=== PATIENT | female | born 1975 | race Caucasian/White ===

== ENCOUNTER 2024-08-06 12:47 | Inpatient (IN) | payer MEDICARE, OTHER ==
[~2024-08-06] VITALS: Ht 170.2 cm; Wt 87.1 kg
[2024-08-06] MEDS ORDERED: KETOROLAC TROMETHAMINE 15 MG INJ ONE (13:34)
[2024-08-06] MEDS ORDERED: ONDANSETRON 4 MG/2 ML VIAL ONE ×2 (13:34→14:14)
[2024-08-06] MEDS: IV NORMAL SALINE 1000 ML BAG IV ONE ×2 (13:41→14:16)
[2024-08-06] MEDS: ONDANSETRON 4 MG/2 ML VIAL IV ONE ×2 (13:41→14:15)
[2024-08-06] MEDS: KETOROLAC TROMETHAMINE 15 MG INJ IVP ONE (13:42)
[2024-08-06 13:56] LABS: BASOPHILS # (AUTO) 0.1 K/UL (0.0-0.2); BASOPHILS % (AUTO) 0.5 % (0.0-2.0); HEMATOCRIT 34.9 % (31.2-41.9); HEMOGLOBIN 11.7 g/dL (10.9-14.3); LYMPHOCYTES % (AUTO) 8.1 % (20.5-51.5); MEAN CORPUSCULAR HGB CONC 34 g/dL (32.3-35.6); MEAN CORPUSCULAR VOLUME 92.2 fL (75.5-95.3); MONOCYTES # (AUTO) 0.3 K/uL (0.1-1.30); MONOCYTES % (AUTO) 2.3 % (0.0-11.0); NEUTROPHILS # (AUTO) 10.7 K/uL (1.8-8.9); NEUTROPHILS % (AUTO) 89.1 % (38.5-71.5); PLATELET COUNT (AUTO) 327 K/uL (179-408); RED BLOOD CELL COUNT(AUTO) 3.79 MIL/uL (3.63-4.92); RED CELL DISTRIBUTION WIDTH 13.3 % (12.3-17.7)
[2024-08-06 13:58] LABS: DIFFERENTIAL COMMENT 1
[2024-08-06 14:03] LABS: CALCIUM 9.7 mg/dL (8.5-10.1); CREATININE 0.6 mg/dL (0.6-1.3); POTASSIUM 3.6 mmol/L (3.5-5.1)
[2024-08-06 14:09] LABS: ALBUMIN 4.2 g/dL (3.4-5.0); BILIRUBIN,TOTAL 0.7 mg/dL (0.2-1.0); TOTAL PROTEIN, SERUM 7.9 g/dL (6.4-8.2)
[2024-08-06] MEDS ORDERED: HYDROMORPHONE 1 MG/1 ML DISP.SYRIN ONE ×5 (14:13→22:22)
[2024-08-06] MEDS: HYDROMORPHONE 1 MG/1 ML DISP.SYRIN IV ONE ×4 (14:16→22:25)
[2024-08-06 14:58] LABS: LIPASE 25 U/L (16-77)
[2024-08-06 14:59] LABS: PREGNANCY TEST SERUM QUAN 1 miul/L (0-6)
[2024-08-06] MEDS ORDERED: METOCLOPRAMIDE HCL 10 MG/2 ML VIAL ONE ×3 (15:11→18:37)
[2024-08-06] MEDS: METOCLOPRAMIDE HCL 10 MG/2 ML VIAL IV ONE ×2 (15:14→17:32)
[2024-08-06 16:43] LABS: *BILIRUBIN,URIN NEGATIVE (NEGATIVE); *CLARITY,URINE CLEAR (CLEAR); *COLOR,URINE YELLOW (YELLOW); *KETONES,URINE 2+ (NEGATIVE); *PROTEIN,URINE NEGATIVE (NEGATIVE); LEUKOCYTE ESTERASE ,URINE NEGATIVE (NEGATIVE); NITRITE, URINE NEGATIVE (NEGATIVE); PH,URINE 7.5 (5.0-8.0); UGLUCOSE TRACE (NEGATIVE)
[2024-08-06 16:54] LABS: *BLOOD, URINE TRACE (NEGATIVE)
[2024-08-06 17:02] LABS: BACTERIA,URINE NONE SEEN /HPF (NONE SEEN); RBC,URINE 0-3 /HPF (0-3); WBC,URINE 0-3 /HPF (0-3)
[2024-08-06 17:03] LABS: SQUAMOUS EPITHELIAL CELL,UR FEW /HPF (NONE SEEN)
[2024-08-06] MEDS ORDERED: DIATR MEGLU/DIATRIZOATE SODIUM 30 ML BOTTLE ONE (17:49)
[2024-08-06] MEDS ORDERED: IOHEXOL 300MG/ML 100 ML INFUS..BTL ONE (17:51)
[2024-08-06] MEDS: DIATR MEGLU/DIATRIZOATE SODIUM 120 ML BOTTLE PO ONE (17:55)
[2024-08-06] MEDS ORDERED: PROCHLORPERAZINE EDISYLATE 10 MG/2 ML VIAL ONE (19:00)
[2024-08-06] MEDS ORDERED: diphenhydrAMINE 50 MG/1 ML VIAL ONE (19:00)
[2024-08-06] MEDS: diphenhydrAMINE 50 MG/1 ML VIAL IV ONE (19:06)
[2024-08-06] MEDS: PROCHLORPERAZINE EDISYLATE 10 MG/2 ML VIAL IV ONE (19:06)
[2024-08-06 20:59] LABS: *URINE HCG, QUAL NEGATIVE (NEGATIVE)
[2024-08-06] MEDS ORDERED: PANTOPRAZOLE SODIUM 40 MG VIAL ONE (21:29)
[2024-08-06] MEDS ORDERED: KETOROLAC TROMETHAMINE 30 MG INJ ONE (21:29)
[2024-08-06] MEDS: KETOROLAC TROMETHAMINE 30 MG INJ IVP ONE (21:36)
[2024-08-06] MEDS: PANTOPRAZOLE SODIUM 40 MG VIAL IV ONE (21:36)
[2024-08-06 22:01] LABS: *AMPHETAMINE, URINE NEGATIVE (NEGATIVE); *BARBITURATE, URINE NEGATIVE (NEGATIVE); *BENZODIAZEPINE, URINE NEGATIVE (NEGATIVE); *CANNABINOID, URINE POSITIVE (NEGATIVE); *COCCAINE, URINE NEGATIVE (NEGATIVE); *OPIATE, URINE POSITIVE (NEGATIVE); *PHENCYCLIDINE SCREEN,URINE NEGATIVE (NEGATIVE); FENTANYL, URINE NEGATIVE (NEGATIVE)
[2024-08-07] MEDS ORDERED: ACETAMINOPHEN 325 MG TABLET PO PRN (01:00)
[2024-08-07] MEDS ORDERED: REMEDY ESSENTIAL ZINC PASTE 113 GM TP PRN (01:00)
[2024-08-07] MEDS ORDERED: PIPERACILLIN/TAZOBACTAM/D5W 50 ML IV ONE (01:07)
[2024-08-07] MEDS: HYDROMORPHONE 1 MG/1 ML DISP.SYRIN IV PRN (01:13)
[2024-08-07] MEDS: PIPERACILLIN SODIUM/TAZOBACTAM 3.375 G in IV DEXTROSE 5% 50 ML IV SCH (01:13)
[2024-08-07 02:01] VITALS: BP 122/72; TEMP 98.3; O2SAT 99
[2024-08-07] MEDS: IV LACTATED RINGERS SOLUTION 1,000 ML IV PRN (02:09)
[2024-08-07 06:29] VITALS: BP 128/59; TEMP 98.3; O2SAT 100
[2024-08-07] MEDS: PANTOPRAZOLE SODIUM 40 MG TABLET.DR PO SCH (06:37)
[2024-08-07 06:51] LABS: BASOPHILS % (AUTO) 0.4 % (0.0-2.0); EOSINOPHILS % (AUTO) 0.1 % (0.0-7.0); HEMATOCRIT 33.9 % (31.2-41.9); HEMOGLOBIN 11.7 g/dL (10.9-14.3); LYMPHOCYTES % (AUTO) 22.4 % (20.5-51.5); MEAN CORPUSCULAR HEMOGLOBIN 31.8 uug (24.7-32.8); MEAN CORPUSCULAR HGB CONC 35 g/dL (32.3-35.6); MEAN CORPUSCULAR VOLUME 92.3 fL (75.5-95.3); MONOCYTES # (AUTO) 0.9 K/uL (0.1-1.30); NEUTROPHILS # (AUTO) 9.3 K/uL (1.8-8.9); NEUTROPHILS % (AUTO) 70.1 % (38.5-71.5); PLATELET COUNT (AUTO) 316 K/uL (179-408); RED BLOOD CELL COUNT(AUTO) 3.67 MIL/uL (3.63-4.92); RED CELL DISTRIBUTION WIDTH 13.4 % (12.3-17.7); WHITE BLOOD COUNT (AUTO) 13.3 K/uL (3.8-11.8)
[2024-08-07 07:02] LABS: DIFFERENTIAL COMMENT 1
[2024-08-07 07:13] LABS: BILIRUBIN,TOTAL 0.9 mg/dL (0.2-1.0); CALCIUM 9.8 mg/dL (8.5-10.1); CREATININE 0.8 mg/dL (0.6-1.3); MAGNESIUM 1.8 mg/dL (1.8-2.4); POTASSIUM 3.6 mmol/L (3.5-5.1); TOTAL PROTEIN, SERUM 7.5 g/dL (6.4-8.2)
[2024-08-07 08:00] VITALS: TEMP 99
[2024-08-07] MEDS: PIPERACILLIN SODIUM/TAZOBACTAM 3.375 G in IV DEXTROSE 5% 100 ML IV SCH (10:33)
[2024-08-07 11:00] VITALS: TEMP 98
[2024-08-07] MEDS ORDERED: DICYCLOMINE HCL 10 MG CAPSULE PO ONE (12:00)
[2024-08-07] MEDS ORDERED: IV LACTATED RINGERS SOLUTION 1,000 ML BAG IV ONE (12:15)
[2024-08-07] MEDS ORDERED: ONDA4TAB5 PO (12:25)
[2024-08-07] MEDS: IV LACTATED RINGERS SOLUTION 1,000 ML IV ONE (12:49)
[2024-08-07] MEDS ORDERED: DICL100G31 TP (12:51)
[2024-08-07] MEDS: FAMOTIDINE. 20 MG/2 ML VIAL IV ONE (12:58)
[2024-08-07] MEDS ORDERED: TIZA4TAB5 PO (12:59)
[2024-08-07] MEDS ORDERED: OMEP40CA21 PO (12:59)
[2024-08-07] MEDS ORDERED: UBRO100T PO (13:01)
[2024-08-07] MEDS ORDERED: MAGN400T26 PO (13:02)
[2024-08-07] MEDS ORDERED: RIBO100T6 PO (13:05)
[2024-08-07] MEDS ORDERED: AMMO225L7 TP (13:07)
[2024-08-07] MEDS ORDERED: DULO60CA64 PO (13:08)
[2024-08-07] MEDS ORDERED: GABA600T12 PO (13:09)
[2024-08-07] MEDS ORDERED: BUSP5TAB3 PO (13:09)
[2024-08-07] MEDS ORDERED: QUET300T2 PO (13:10)
[2024-08-07] MEDS ORDERED: QUET25TA36 PO (13:11)
[2024-08-07] MEDS ORDERED: ERGO500040 PO (13:12)
[2024-08-07] MEDS ORDERED: HYDR-3895 PO (13:13)
[2024-08-07] MEDS ORDERED: FERR-56 PO (13:15)
[2024-08-07] MEDS ORDERED: MOUNJARO SQ (13:16)
[2024-08-07] MEDS ORDERED: HYDR28.462 TP (13:17)
[2024-08-07] MEDS ORDERED: HYDR-3972 PO (13:22)
[2024-08-07] MEDS ORDERED: METF-442 PO (13:23)
[2024-08-07] MEDS ORDERED: DONE10TA44 PO (13:24)
[2024-08-07] MEDS ORDERED: SIMV-46 PO (13:24)
[2024-08-07] MEDS ORDERED: FOLI1TAB94 PO (13:25)
[2024-08-07] MEDS ORDERED: ALEN70TA80 PO (13:26)
[2024-08-07] MEDS: ONDANSETRON 4 MG/2 ML VIAL IV PRN (14:19)
== END 2024-08-07 15:30 | disposition home or self-care (01) | DRG 392 ==
LOC: ER 12:52 → MEDSURG3 08-07 01:26
PROVIDERS: ADMIT Nurse Practitioner Family
PROC: 05HC33Z Insertion of Infusion Device into Left Basilic Vein, Percutaneous Approach (ICD-10-PCS; principal; 2024-08-07)
DX: A08.4 Viral intestinal infection, unspecified (principal); R11.2 Nausea with vomiting, unspecified; F12.90 Cannabis use, unspecified, uncomplicated; E11.9 Type 2 diabetes mellitus without complications; Z98.84 Bariatric surgery status; Z90.49 Acquired absence of other specified parts of digestive tract; E66.9 Obesity, unspecified; Z68.30 Body mass index [BMI] 30.0-30.9, adult
CPT/HCPCS: 36415; 71045; 83690; 83735; 84484; 84703; 85025; 85730; A4606; A4663; G0378; J0780; J1171; J1200; J1308; J1885; J2405; J2470; J2543; J2765; J7040; J7120; Q9963; Q9967

== ENCOUNTER 2025-03-20 07:11 | Emergency (ER) | payer MEDICARE, OTHER ==
[~2025-03-20] VITALS: Ht 167.6 cm; Wt 74.8 kg
[~2025-03-20 07:11] MED LIST: ALEN70TA80 PO; AMMO225L7 TP; BUSP5TAB3 PO; DICL100G61 TP; DONE10TA44 PO; DULO60CA64 PO; ERGO125010 PO; FERR-56 PO; FOLI1TAB94 PO; HYDR-3895 PO; HYDR-3972 PO; HYDR28.462 TP; MAGN400T26 PO; METF-442 PO; MOUNJARO SQ; OMEP40CA21 PO; ONDA4TAB5 PO; QUET25TA36 PO; QUET300T2 PO; RIBO100T6 PO; SIMV-46 PO; TIZA-205 PO; UBRO100T PO; [UNRECOGNIZED DRUG - CODE] PO
[2025-03-20] MEDS: IV NORMAL SALINE 1000 ML BAG IV ONE (07:33)
[2025-03-20] MEDS ORDERED: diphenhydrAMINE 50 MG/1 ML VIAL ONE (07:34)
[2025-03-20] MEDS ORDERED: HALOPERIDOL LACTATE 5 MG/1 ML VIAL ONE (07:34)
[2025-03-20] MEDS: HALOPERIDOL LACTATE 5 MG/1 ML VIAL IV ONE (07:38)
[2025-03-20] MEDS: diphenhydrAMINE 50 MG/1 ML VIAL IV ONE (07:38)
[2025-03-20 07:55] LABS: PLATELET COUNT (AUTO) 391 K/uL (179-408); RED BLOOD CELL COUNT(AUTO) 4.61 MIL/uL (3.63-4.92); RED CELL DISTRIBUTION WIDTH 13.9 % (12.3-17.7); WHITE BLOOD COUNT (AUTO) 11.4 K/uL (3.8-11.8)
[2025-03-20 08:12] LABS: ASPARTATE AMINOTRANSFERASE 16 U/L (15-37); CREATININE 0.8 mg/dL (0.6-1.3); SODIUM SERUM 137 mmol/L (136-145); TOTAL PROTEIN, SERUM 8.6 g/dL (6.4-8.2); UREA NITROGEN, BLOOD 13 mg/dL (7-18)
[2025-03-20 08:16] LABS: PREGNANCY TEST SERUM QUAN 2 miul/L (0-6)
[2025-03-20] MEDS ORDERED: IV NORMAL SALINE 250 ML IV ONE (08:30)
[2025-03-20] MEDS ORDERED: SWABABLE VALVE TRANSFER SET EA MC ONE (08:30)
[2025-03-20] MEDS ORDERED: IOHEXOL 300MG/ML 100 ML INFUS..BTL ONE (08:30)
[2025-03-20] MEDS ORDERED: METOCLOPRAMIDE HCL 10 MG/2 ML VIAL ONE (09:11)
[2025-03-20] MEDS: METOCLOPRAMIDE HCL 10 MG/2 ML VIAL IV ONE (09:16)
[2025-03-20] MEDS ORDERED: BUPRENORPHINE HCL 2 MG TAB.SUBL SL ONE (10:24)
[2025-03-20] MEDS: BUPRENORPHINE HCL 2 MG TAB.SUBL SL ONE (10:29)
[2025-03-20 10:44] LABS: *BILIRUBIN,URIN NEGATIVE (NEGATIVE); *CLARITY,URINE CLEAR (CLEAR); *COLOR,URINE YELLOW (YELLOW); *KETONES,URINE 3+ (NEGATIVE); *PROTEIN,URINE NEGATIVE (NEGATIVE); *UROBILINOGEN,URINE 1.0 E.U./dl (NORMAL); LEUKOCYTE ESTERASE ,URINE NEGATIVE (NEGATIVE); NITRITE, URINE NEGATIVE (NEGATIVE); UGLUCOSE NEGATIVE (NEGATIVE)
[2025-03-20 10:59] LABS: *BLOOD, URINE TRACE (NEGATIVE)
[2025-03-20 11:00] LABS: SQUAMOUS EPITHELIAL CELL,UR FEW /HPF (NONE SEEN); URINE AMORPHOUS URATE FEW /HPF
[2025-03-20 12:51] VITALS: BP 111/85
[2025-03-20] MEDS ORDERED: METO-295 PO (13:29)
[2025-03-20 13:41] VITALS: BP 111/85; TEMP 97.2; O2SAT 100
== END 2025-03-20 13:41 | disposition home or self-care (01) ==
LOC: ER 07:11
DX: F11.23 Opioid dependence with withdrawal (principal); E86.0 Dehydration; R11.2 Nausea with vomiting, unspecified; E11.9 Type 2 diabetes mellitus without complications; K50.90 Crohn's disease, unspecified, without complications; Z79.899 Other long term (current) drug therapy; Z90.49 Acquired absence of other specified parts of digestive tract; Z98.84 Bariatric surgery status
CPT/HCPCS: 99285; 74177; 96374; 96375; 96361; 80076; 80048; 81001; 83690; 85025; 85730; 84484; 84702; 36415; 93005; J1200; J1630; J2765; Q9967; J7040; A4606; A4663

== ENCOUNTER 2025-04-02 15:17 | Inpatient (IN) | payer MEDICARE, OTHER ==
[~2025-04-02] VITALS: Ht 170.2 cm; Wt 75.8 kg
[~2025-04-02 15:17] MED LIST changes: +METO-295 PO
[2025-04-02] MEDS ORDERED: ONDANSETRON 4 MG/2 ML VIAL ONE ×2 (16:00→20:30)
[2025-04-02 16:01] LABS: PLATELET COUNT (AUTO) 322 K/uL (179-408); RED BLOOD CELL COUNT(AUTO) 5.01 MIL/uL (3.63-4.92); RED CELL DISTRIBUTION WIDTH 14.1 % (12.3-17.7); WHITE BLOOD COUNT (AUTO) 10.7 K/uL (3.8-11.8)
[2025-04-02] MEDS ORDERED: HYDROMORPHONE 1 MG/1 ML DISP.SYRIN ONE (16:01)
[2025-04-02] MEDS: ONDANSETRON 4 MG/2 ML VIAL IV ONE (16:05)
[2025-04-02] MEDS: HYDROMORPHONE 1 MG/1 ML DISP.SYRIN IV ONE ×2 (16:05→17:10)
[2025-04-02 16:09] LABS: CREATININE 0.9 mg/dL (0.6-1.3); SODIUM SERUM 140.0 mmol/L (136-145); UREA NITROGEN, BLOOD 8.0 mg/dL (7-18)
[2025-04-02 16:14] LABS: ASPARTATE AMINOTRANSFERASE 24.0 U/L (15-37); TOTAL PROTEIN, SERUM 8.7 g/dL (6.4-8.2)
[2025-04-02 16:24] LABS: LACTIC ACID 3.8 mmol/L (0.4-2.0)
[2025-04-02] MEDS: IV NORMAL SALINE 1000 ML BAG IV ONE (16:30)
[2025-04-02 16:32] LABS: *BILIRUBIN,URIN NEGATIVE (NEGATIVE); *BLOOD, URINE TRACE (NEGATIVE); *CLARITY,URINE SLIGHTLY CLOUDY (CLEAR); *COLOR,URINE YELLOW (YELLOW); *KETONES,URINE NEGATIVE (NEGATIVE); *PROTEIN,URINE 1+ (NEGATIVE); *UROBILINOGEN,URINE 1.0 E.U./dl (NORMAL); LEUKOCYTE ESTERASE ,URINE 1+ (NEGATIVE); NITRITE, URINE NEGATIVE (NEGATIVE); UGLUCOSE NEGATIVE (NEGATIVE)
[2025-04-02 16:39] LABS: SQUAMOUS EPITHELIAL CELL,UR FEW /HPF (NONE SEEN)
[2025-04-02] MEDS ORDERED: HYDROMORPHONE 2 MG/1 ML DISP.SYRIN ONE (17:07)
[2025-04-02] MEDS: IV NS 1000 ML 1,000 ML IV ONE (17:36)
[2025-04-02] MEDS ORDERED: ACETAMINOPHEN 325 MG TABLET PO PRN (18:30)
[2025-04-02] MEDS ORDERED: MAGNESIUM HYDROXIDE 30 ML LIQUID UDC PO PRN (18:30)
[2025-04-02] MEDS: ONDANSETRON 4 MG/2 ML VIAL IV PRN (20:32)
[2025-04-02 21:13] VITALS: BP 111/71
[2025-04-02] MEDS ORDERED: FAMOTIDINE. 20 MG/2 ML VIAL IV ONE ×2 (21:17→21:18)
[2025-04-02] MEDS: FAMOTIDINE. 20 MG/2 ML VIAL IV SCH (21:19)
[2025-04-02 22:10] VITALS: BP 127/91; TEMP 99.1; O2SAT 100
[2025-04-03] MEDS: IV NS 1000 ML 1,000 ML IV PRN (03:01)
[2025-04-03] MEDS: MORPHINE SULFATE 2 MG/1 ML DISP.SYRIN IV PRN (03:59)
[2025-04-03 06:56] LABS: PLATELET COUNT (AUTO) 277 K/uL (179-408); RED BLOOD CELL COUNT(AUTO) 4.29 MIL/uL (3.63-4.92); RED CELL DISTRIBUTION WIDTH 14.1 % (12.3-17.7); WHITE BLOOD COUNT (AUTO) 8.8 K/uL (3.8-11.8)
[2025-04-03 07:04] LABS: ASPARTATE AMINOTRANSFERASE 16.0 U/L (15-37); CREATININE 0.7 mg/dL (0.6-1.3); SODIUM SERUM 139.0 mmol/L (136-145); TOTAL PROTEIN, SERUM 7.1 g/dL (6.4-8.2); UREA NITROGEN, BLOOD 10.0 mg/dL (7-18)
[2025-04-03 09:13] VITALS: BP 146/73; O2SAT 100
[2025-04-03] MEDS ORDERED: LIDO35.4 TP (10:50)
[2025-04-03] MEDS ORDERED: ASCO500T20 PO (10:51)
[2025-04-03] MEDS ORDERED: CHOL500050 PO (10:54)
[2025-04-03] MEDS ORDERED: DIHY1SPR BNOSTRILS (10:58)
[2025-04-03] MEDS ORDERED: CYCL1DRO6 EACHEYE (10:58)
[2025-04-03] MEDS ORDERED: GALC120P SQ (10:59)
[2025-04-03] MEDS ORDERED: PERF3DRO EACHEYE (11:00)
[2025-04-03] MEDS ORDERED: CELE-127 PO (11:01)
[2025-04-03] MEDS ORDERED: FOLI1TAB27 PO (11:02)
[2025-04-03] MEDS ORDERED: HYDROXYZINE PAMOATE 25 MG CAPSULE PO PRN (12:00)
[2025-04-03] MEDS ORDERED: Medication Not On Formulary EA (Ubrogepant (Ubrelvy) 100 MG) PO PRN (12:00)
[2025-04-03] MEDS ORDERED: QUETIAPINE FUMARATE 200 MG TABLET PO PRN (13:30)
[2025-04-03] MEDS ORDERED: QUETIAPINE FUMARATE 100 MG TABLET PO PRN (13:30)
[2025-04-03] MEDS: GABAPENTIN 300 MG CAPSULE PO SCH (13:37)
[2025-04-03] MEDS ORDERED: ERGOCALCIFEROL 50,000 UNIT CAPSULE PO SCH (14:00)
[2025-04-03] MEDS: POTASSIUM CHLORIDE 20 MEQ POWDER PACKET PO SCH (15:35)
[2025-04-03 16:00] VITALS: BP 119/71; TEMP 97.6; O2SAT 99
[2025-04-03] MEDS: DULOXETINE 60 MG CAPSULE.DR PO SCH (16:07)
[2025-04-03 19:35] VITALS: BP 180/87; TEMP 99.4; O2SAT 99
[2025-04-03] MEDS: CELECOXIB 200 MG CAPSULE PO PRN (19:37)
[2025-04-03] MEDS: TIZANIDINE HCL 4 MG TABLET PO PRN (19:37)
[2025-04-03] MEDS: SIMVASTATIN 20 MG TABLET PO SCH (20:14)
[2025-04-03] MEDS: LIDOCAINE 5% OINT 35.44 GM TUBE TP PRN (23:49)
[2025-04-04 05:56] VITALS: BP 157/77; TEMP 99.2; O2SAT 99
[2025-04-04 06:34] LABS: PLATELET COUNT (AUTO) 270 K/uL (179-408); RED BLOOD CELL COUNT(AUTO) 4.60 MIL/uL (3.63-4.92); RED CELL DISTRIBUTION WIDTH 13.6 % (12.3-17.7); WHITE BLOOD COUNT (AUTO) 10.4 K/uL (3.8-11.8)
[2025-04-04 06:40] LABS: CREATININE 0.5 mg/dL (0.6-1.3); SODIUM SERUM 131 mmol/L (136-145); UREA NITROGEN, BLOOD 8 mg/dL (7-18)
[2025-04-04] MEDS: MAGNESIUM SULFATE/D5W 100 ML IV SCH (09:08)
[2025-04-04] MEDS: ASCORBIC ACID 500 MG TABLET PO SCH (09:10)
[2025-04-04] MEDS: MAGNESIUM OXIDE 400 MG TABLET PO SCH (09:12)
[2025-04-04] MEDS: ERGOCALCIFEROL 50,000 UNIT CAPSULE PO SCH (09:14)
[2025-04-04] MEDS: FOLIC ACID 1 MG TABLET PO SCH (09:19)
[2025-04-04 11:21] LABS: *SODIUM RNDM,URINE 194 mmol/L (40-220)
[2025-04-04 11:27] VITALS: BP 107/70; TEMP 99.1; O2SAT 99
[2025-04-04] MEDS: POTASSIUM CHLORIDE 50 ML IV SCH (11:36)
[2025-04-04 15:19] VITALS: BP 108/64; TEMP 98.6; O2SAT 99
[2025-04-04] MEDS: NEUTRA PHOS PACKET PO ONE (17:54)
[2025-04-04 19:00] VITALS: BP 140/81; TEMP 98; O2SAT 99
[2025-04-05] MEDS: HYDROCODONE/APAP 5-325MG TABLET PO PRN (01:30)
[2025-04-05 04:00] VITALS: BP 147/82; TEMP 97.9; O2SAT 97
[2025-04-05 06:31] LABS: PLATELET COUNT (AUTO) 265 K/uL (179-408); RED BLOOD CELL COUNT(AUTO) 4.17 MIL/uL (3.63-4.92); RED CELL DISTRIBUTION WIDTH 13.8 % (12.3-17.7); WHITE BLOOD COUNT (AUTO) 7.1 K/uL (3.8-11.8)
[2025-04-05 06:41] LABS: CREATININE 0.5 mg/dL (0.6-1.3); SODIUM SERUM 134 mmol/L (136-145); UREA NITROGEN, BLOOD 11 mg/dL (7-18)
[2025-04-05] MEDS ORDERED: CEPH500T PO (09:03)
[2025-04-05 11:38] VITALS: BP 104/69; TEMP 98.7; O2SAT 98
[2025-04-05 14:00] VITALS: BP 111/75; TEMP 98.3; O2SAT 97
== END 2025-04-05 14:35 | disposition home or self-care (01) | DRG 690 ==
LOC: ER 15:27 → MEDSURG3 21:48
PROVIDERS: ADMIT Nurse Practitioner Family; ATTEND Nurse Practitioner Family
DX: N39.0 Urinary tract infection, site not specified (principal); E87.20 Acidosis, unspecified; E11.65 Type 2 diabetes mellitus with hyperglycemia; E87.1 Hypo-osmolality and hyponatremia; K50.90 Crohn's disease, unspecified, without complications; R17 Unspecified jaundice; E86.0 Dehydration; R11.2 Nausea with vomiting, unspecified; Z98.84 Bariatric surgery status; E86.1 Hypovolemia; E83.42 Hypomagnesemia; Z84.19 Family history of other disorders of kidney and ureter; G89.29 Other chronic pain; Z79.84 Long term (current) use of oral hypoglycemic drugs
CPT/HCPCS: 36415; 76700; 83605; 83690; 83735; 84100; 84300; 84443; 84550; 85025; 87077; 87086; A4606; A4663; G0378; J0360; J0696; J1171; J1308; J2270; J2405; J3475; J3480; J7040